=== PATIENT | male | born 1960 | race Caucasian/White ===

== ENCOUNTER 2016-11-19 11:34 | Inpatient (IN) | payer OTHER ==
[~2016-11-19] VITALS: Ht 180.3 cm; Wt 96.2 kg
--- NOTE | ~2016-11-19 | EKG ---
[address] [place] [address] ELECTROCARDIOGRAM REPORT Name: BYRON GARVEY Room #: 440-P [facility] IN M.R.#: [id number] Admission: 11/19/16 Attend Phys: Rommel Rios DO Discharge: 11/20/16 Date of : 58 Report #: [id number] THIS REPORT FOR: //name// [facility] ED Test Date: 2016-11-19 Test Time: 11:41:10 Pat Name: BYRON GARVEY Department: Room: 440 Gender: M [employer] Operator: gus : 1960 Requested By: Shelly Lucas Order Number: [id number] MD: Cuate Mason Measurements Intervals [place] Rate: 65 P: 9 NM: 164 QRS: 0 QRSD: 101 T: 23 QT: 396 QTc: 412 Interpretive Statements Sinus rhythm Baseline wander in lead(s) V1 No previous ECG available for comparison Electronically Signed On 11-20-2016 22:51:17 CDT by Cuate Mason [email or web address] <ELECTRONICALLY SIGNED> By: Cuate Mason MD 11/20/16 2251 1141 1141 Cuate Mason MD /HELEN
--- NOTE | ~2016-11-19 | 2DMMODE ---
[facility] [address] [place] [address] 2 D/M-MODE ECHOCARDIOGRAM Name: BYRON GARVEY Room #: 440-P [facility] IN ..#: [id number] Admission: 11/19/16 Attend Phys: Rommel Rios, Discharge: Date of : 58 Date of Service: 11/19/16 1622 Report #: [id number] THIS REPORT FOR: //name// APPROVED REPORT Study performed: 11/19/2016 14:22:55 EXAM: Comprehensive 2D, Doppler, and color-flow Echocardiogram Patient Location: Bedside Room #: 440 Status: routine Other Information Study Quality: Adequate Indications CVA/TIA Echo Enhancing Agent Indication: Rule out Shunt Agent(s) / Amount(s) Used: Agitated Saline 6 cc 2D Dimensions RVDd: 41.20 mm LVEF(%): 62.87 (>50%) IVSd: 9.27 (7-11mm) LVOT Diam: 22.35 (18-24mm) LVDd: 50.53 mm PWd: 8.88 (7-11mm) Ascending Ao: 39.38 (22-36mm) LVDs: 33.26 (25-40mm) Aortic Root: 34.83 mm Melgar's LVEF: 62.87 % Volumes Left Atrial Volume (Systole) Single Plane 4CH: 52.05 mL Single Plane 2CH: 56.90 mL LA ESV Index: 29.00 mL/m2 Aortic Valve AoV Peak Masood.: 1.52 m/s AO Peak Gr.: 9.23 mmHg LVOT Max P.10 mmHg LVOT Max V: 1.13 m/s KEVIN Vmax: 2.91 cm2 Mitral Valve E/A Ratio: 1.6 MV Decel. Time: 199.65 ms [facility] [place] [address] 2 D/M-MODE ECHOCARDIOGRAM Name: BYRON GARVEY Room #: 440-P [facility] IN M.R.#: [id number] Admission: 11/19/16 Attend Phys: Rommel Rios, Discharge: Date of : 58 Date of Service: 11/19/16 1622 Report #: [id number] MV E Max Masood.: 0.99 m/s MV A Masood.: 0.62 m/s MV PHT: 57.90 ms IVRT: 69.20 ms Pulmonary Valve PV Peak Masood.: 1.15 m/s PV Peak Gr.: 5.33 mmHg Pulmonary Vein P Vein S: 0.58 m/s P Vein A: 0.32 m/s P Vein D: 0.46 m/s P Vein A Dur.: 143.0 msec P Vein S/D Ratio: 1.26 Tricuspid Valve TR Peak Masood.: 2.15 m/s RAP Estimate: 5.00 mmHg TR Peak Gr.: 18.42 mmHg PA Pressure: 23.00 mmHg Left Ventricle The left ventricle is normal size. There is normal LV segmental wall motion. There is normal left ventricular wall thickness. Left ventricular systolic function is normal. LVEF is 55-60%. The left ventricular diastolic function is normal. Right Ventricle The right ventricle is normal size. The right ventricular systolic function is normal. Atria The left atrium size is normal. Injection of bubbles documented an interatrial shunt. The right atrium size is normal. Aortic Valve The aortic valve is normal in structure. No aortic regurgitation is present. There is no aortic valvular stenosis. Mitral Valve The mitral valve is normal in structure. Trace mitral regurgitation. No evidence of mitral valve stenosis. Tricuspid Valve The tricuspid valve is normal in structure. There is trace to mild tricuspid regurgitation. The right atrial pressure is estimated at 5 mmHg. Estimated PAP is 23mmHg. Pulmonic Valve [address] [address] 2 D/M-MODE ECHOCARDIOGRAM Name: BYRON GARVEY Room #: 440-P [facility] IN [facility]#: [id number] Admission: 11/19/16 Attend Phys: Rommel Rios, Discharge: Date of : 58 Date of Service: 11/19/16 1622 Report #: [id number] The pulmonary valve is normal in structure. Trace pulmonic regurgitation. Great Vessels The aortic root is normal in size. The ascending aorta is mildly dilated. IVC is normal in size and collapses >50% with inspiration. Pericardium There is no pericardial effusion. <Conclusion> The left ventricle is normal size. LVEF is 55-60%. The aortic valve is normal in structure. The mitral valve is normal in structure. Trace mitral regurgitation. The tricuspid valve is normal in structure. There is trace to mild tricuspid regurgitation. The right atrial pressure is estimated at 5 mmHg. Estimated PAP is 23mmHg. The pulmonary valve is normal in structure. Trace pulmonic regurgitation. The ascending aorta is mildly dilated. Injection of bubbles documented an interatrial shunt. <ELECTRONICALLY SIGNED> By: Seferino Tubbs MD 11/19/16 1622 162 [id number] Seferino Tubbs MD /INF
[~2016-11-19 11:34] MED LIST: COMPAZINE10 MG PO; NOHOMEMEDICATIONS; PERCOCET 5-3251 EACH PO
[2016-11-19 11:40] VITALS: BP 138/82
[2016-11-19 11:52] LABS: ABSOLUTE NEUTROPHILS 3.4 thou/uL (1.4-8.2); BASOPHILS 0.8 % (0.0-2.0); HEMATOCRIT 40.2 % (42.0-52.0); HEMOGLOBIN 13.7 gm/dL (14.0-18.0); LYMPHOCYTES 32.5 % (24.0-44.0); MANUAL DIFF NO; MCH 30.6 pg (26.0-34.0); MCV 89.9 fL (80.0-100.0); MONOCYTES 9.5 % (1.0-8.0); POLYS 52.2 % (36.0-66.0); RBC 4.47 mil/uL (4.50-6.00); RDW 13.6 % (10.5-14.5); WBC 6.5 thou/uL (4.0-11.0)
[2016-11-19 11:53] LABS: PLATELET COUNT 193 thou/uL (150-400)
[2016-11-19 12:02] LABS: ANION GAP 10 mmol/L (7-16); BUN 18 mg/dL (7-18); CALCIUM 9.4 mg/dL (8.5-10.1); CHLORIDE 107 mmol/L (98-107); CO2 25 mmol/L (21-32); CREATININE 1.1 mg/dL (0.7-1.3); POTASSIUM 3.6 mmol/L (3.5-5.1); SODIUM 142 mmol/L (136-145)
[2016-11-19 12:05] LABS: APTT 24.9 Seconds (24.5-32.8)
[2016-11-19 12:07] LABS: GLUCOSE 103 mg/dL (74-106)
[2016-11-19 12:10] LABS: TROPONIN-I < 0.04 ng/mL (<0.04-0.07)
[2016-11-19 13:27] LABS: CHOLESTEROL 191 mg/dL (<200); HDL CHOLESTEROL 60 mg/dL (>40); LDL CHOLESTEROL 111 mg/dL (<100); TC:HDL 3.2 Ratio (Not establshd); TRIGLYCERIDE 102 mg/dL (<150); VLDL 20 mg/dL (<40)
[2016-11-19 14:08] VITALS: BP 121/88
[2016-11-19] MEDS ORDERED: IBUPROFEN 200200 M1 PO (14:13)
[2016-11-19 14:40] VITALS: BP 123/75
[2016-11-19 14:47] LABS: FOLIC ACID 8.9 ng/mL (8.6-58.9); TSH 1.831 uIU/mL (0.358-3.740)
[2016-11-19 19:58] VITALS: BP 132/79
[2016-11-20 03:40] VITALS: BP 123/75
[2016-11-20 08:37] VITALS: BP 119/74
[2016-11-20] MEDS ORDERED: ASPIR 8181 MG PO (10:09)
[2016-11-20 10:16] VITALS: BP 119/74
[2016-11-22 00:10] LABS: ALPHA TOCOPHEROL 9.1 mg/L (5.3-17.5)
== END 2016-11-20 12:00 | disposition home or self-care (01) | DRG 74 ==
LOC: ER 11:34 → EROBS 12:42 → 4S 14:11
PROVIDERS: Emergency Medicine; Psychiatry & Neurology Neurology
DX: G58.9 Mononeuropathy, unspecified (principal); G45.9 Transient cerebral ischemic attack, unspecified; R47.01 Aphasia; I10 Essential (primary) hypertension
CPT/HCPCS: 10100